=== PATIENT | female | born 1955 | race Caucasian/White ===

== ENCOUNTER 2019-11-12 14:46 | Outpatient (CLI) | payer OTHER, SELFPAY ==
--- NOTE | 2019-11-12 14:51 | US_ITS ---
WS: [id number] INDICATION: Enlarged lymph nodes TECHNIQUE: Ultrasound right axilla FINDINGS: Ultrasound right axilla. No evidence of subcutaneous mass or lesion. No visualized enlarged lymph nodes. US/US soft tissue/extremity 12420 IMPRESSION: Unremarkable right axillary ultrasound
== END 2019-11-12 14:47 | disposition home or self-care (01) ==
LOC: US 14:46
PROVIDERS: PCP Nurse Practitioner Family; Visit Provider Family Medicine
DX: R59.0 Localized enlarged lymph nodes (principal)
CPT/HCPCS: 76882

== ENCOUNTER 2020-01-21 16:17 | Emergency (ER) | payer OTHER, SELFPAY ==
[2020-01-21 16:20] VITALS: BP 177/92; PULSE 69; RESP 16; TEMP 36.3; O2SAT 99; BMI 24.3
--- NOTE | 2020-01-21 16:45 | ECG_ITS ---
[facility] Test Date: 2020-01-21 Pat Name: Marsha Juárez Department: Room: Gender: Female Candy Feeder: : 1955 Requested By: Ruben Shen Order Number: [id number] Demarcus MD: Kike Landrum M.D. Measurements Intervals [place] Rate: 71 P: 64 VA: 152 QRS: 53 QRSD: 106 T: 26 QT: 429 QTc: 467 Interpretive Statements SINUS RHYTHM MODERATE ST DEPRESSION [0.05+ mV ST DEPRESSION] No previous ECG available for comparison Electronically Signed On 01-21-2020 20:22:46 CDT by Kike Landrum M.D. [email or web address] centerCraft[facility].[employer]/store/NU/[id number] f
--- NOTE | 2020-01-21 17:28 | XRR_ITS ---
PROCEDURE INFORMATION: Exam: XR Chest, 1 View Exam date and time: 01/21/2020 5:39 PM Age: 64 years old Clinical indication: Chest pain; Prior surgery; Surgery type: Pain stimulator TECHNIQUE: Imaging protocol: XR of the chest Views: 1 view. COMPARISON: No relevant prior studies available. FINDINGS: Tubes, catheters and devices: Spinal stimulator seen over the thorax. Lungs: Right upper lobe calcified granulomas. Pleural space: Unremarkable. No pleural effusion. No pneumothorax. Heart/Mediastinum: Mild cardiomegaly. Bones/joints: Unremarkable. XR/XR chest 1V portable [id number] IMPRESSION: 1. Negative for infiltrate 2. Right upper lobe calcified granulomas. 3. Spinal stimulator seen over the thorax. 4. Mild cardiomegaly.
--- NOTE | 2020-01-21 18:45 | ECG_ITS ---
[facility] Test Date: 2020-01-21 Pat Name: Marsha Juárez Department: Room: Gender: Female Enterprise Data Architect: : 1955 Requested By: Ruben Shen Order Number: [id number] Demarcus MD: Kike Landrum M.D. Measurements Intervals [place] Rate: 67 P: 68 MO: 142 QRS: 99 QRSD: 99 T: 2 QT: 407 QTc: 430 Interpretive Statements SINUS RHYTHM BORDERLINE RIGHT AXIS DEVIATION [QRS AXIS > 90] MODERATE ST DEPRESSION [0.05+ mV ST DEPRESSION] Compared to ECG 01/21/2020 16:25:00 No significant changes Electronically Signed On 01-21-2020 20:25:21 CDT by Kike Landrum M.D. [email or web address] [email or web address].[employer]/store/OM/[id number]
[2020-01-21 19:35] LABS: Basophils # 0.1 10^3/uL (0.0-0.1); Basophils % 1.2 %; Eosinophils # 0.4 10^3/uL (0.0-0.8); Eosinophils % 4.1 %; Hematocrit 47.6 % (37.0-47.0); Hemoglobin 15.3 g/dL (11.5-15.3); Lymphocytes # 2.2 10^3/uL (0.8-4.8); Lymphocytes % 25.1 %; Mean Corpuscular HGB Conc 32.1 g/dL (30.0-36.0); Mean Corpuscular Hemoglobin 30.5 pg (28.0-34.0); Mean Platelet Volume 10.5 fL (7.4-10.4); Monocytes # 0.5 10^3/uL (0.2-0.9); Monocytes % 5.3 %; Neutrophils % 64.1 %; Nucleated Red Blood Cells % 0 %; Platelet Count 415 10^3/cmm (130-400); Red Blood Count 5.01 10^6/uL (4.1-5.3); Red Cell Distribution Width 13.8 % (12.1-15.1); White Blood Count 8.6 10^3/uL (4.0-10.0)
[2020-01-21 19:46] LABS: Alanine Aminotransferase 18 U/L (0-33); Albumin Level 4.7 g/dL (3.5-5.2); Alkaline Phosphatase 64 IU/L (35-105); Anion Gap 13.1 (5-19); Aspartate Amino Transferase 22 U/L (0-32); Blood Urea Nitrogen 11 mg/dL (8-23); Calcium 9.7 mg/dL (8.5-10.5); Carbon Dioxide 28 mmol/L (22-29); Chloride 101 mmol/L (98-107); Globulin 2.5 g/dL (1.3-4.6); Glomerular Filtration Rate 72.7 mL/min (90-130); Glucose 98 mg/dL (65-115); Osmolality Calculated 282 mOsm/kg (285-295); Potassium 4.1 mmol/L (3.5-5.1); Sodium 138 mmol/L (136-145); Total Bilirubin 0.2 mg/dL (0.15-1.2); Total Protein 7.2 g/dL (6.6-8.7)
[2020-01-21 19:48] LABS: Troponin(5th) Baseline 17 ng/L (0-10)
[2020-01-21 19:54] VITALS: BP 145/84; PULSE 62; TEMP 36.6; O2SAT 99
--- NOTE | 2020-01-21 21:10 | ED_ITS ---
HPI - Chest Pain General: Chief Complaint: Chest Pain Stated Complaint: CP Time Seen by Provider: 01/21/20 20:51 Source: patient Mode of arrival: ambulatory Limitations: no limitations History of Present Illness: HPI narrative: Patient is a 64-year-old female who presents to ED today with complaint of constant substernal chest pain over the past 3 to 4 days. Patient tells me her pain does not radiate. She describes as a heaviness on her chest. She is not having any shortness of breath, cough, difficulty breathing. She does have a chronic history of asthma and states she normally uses her inhaler 1-2 times a week. She is not having to use this more frequently than normal. Patient's chest pain does not seem to be worse with cough, movement, exertion, or position. She denies previous episodes. She has no cardiac history. She is tried a heating pad without relief. She does have a history of heartburn but states this feels different. She does have a history of hiatal hernias that have been repaired but again states this feels different. She has not been running fevers. She does tell me she has been doing a lot of heavy lifting recently and wonders if maybe she could have strained something in her chest. complaint: chest pain Onset (ago): day(s) Timing of current episode: constant Prior episodes: No Pain location: substernal Pain radiation: none Quality: tightness and heaviness Relieving factors: nothing Exacerbating factors: nothing Associated symptoms: Reports dyspnea (chronic, intermittent secondary to asthma); Deny abdominal pain, fever(s), nausea, palpitations, syncope or vomiting Treatment prior to arrival: other (heating pad-no relief ) Review of Systems Const: Denies: fever(s), chills, body aches, fatigue or malaise Eyes: Denies: change in vision, blurry vision, photophobia, floaters or seeing flashes ENMT: Denies: throat pain or odynophagia Card: Reports: chest pain; Denies: palpitations, irregular heart rhythm, edema, swelling of feet/ankles, lightheadedness, syncope, pre-syncope, dyspnea on exertion, orthopnea, leg pain with exertion or acrocyanosis Resp: Reports: dyspnea (chronic, intermittent secondary to asthma); Denies: productive cough, non-productive cough, wheezing, pain on inspiration, change in phlegm color, hemoptysis or chest congestion GI: Denies: abdominal pain, nausea, vomiting or change in stool character : Denies: flank pain Musc: Denies: neck pain or back pain Neuro: Denies: headache(s), numbness in extremities, weakness in extremities, sensory changes or dizziness Physical Exam Const: COMMON NORMALS: no acute distress, average body habitus, patient oriented x3, no limitations, healthy appearing, alert and well nourished HENMT: COMMON NORMALS: atraumatic HEAD & SCALP: atraumatic Neck/C-Spine: COMMON NORMALS: full ROM, no lymphadenopathy and no meningeal signs GENERAL: Yes normal visual inspection Chest: COMMONS NORMALS: normal inspection of the chest Chest images (female): 1. mild TTP Resp: COMMON NORMALS: normal respiratory effort and clear to auscultation bilaterally AUSCULTATION: clear to auscultation bilaterally Cardio: COMMON NORMALS: regular rate and regular rhythm RATE: regular rate RHYTHM: regular rhythm GI: COMMON NORMALS: Normal to inspection, nondistended, normoactive bowel sounds present, Soft to palpation, non-tender, No hepatosplenomegaly present and no masses PALPATION: Yes Soft to palpation and Yes No hepatosplenomegaly present : COMMON NORMALS: Yes no CVA tenderness BLADDER/KIDNEY EXAM: Yes no CVA tenderness Back/Pelvis: COMMON NORMALS: no CVA tenderness Extremity: COMMON NORMALS: capillary refill normal, no clubbing, cyanosis or edema, no calf tenderness and no pedal edema Neuro: COMMON NORMALS: patient oriented x3 SENSORIUM/ORIENTATION: Yes alert MENINGEAL SIGNS: Yes no meningeal signs Skin: COMMON NORMALS: no rashes or lesions noted GENERAL SKIN EXAM: no rashes or lesions noted Course Vital Signs: Vital signs: Vital Signs Temperature 97.9 F 01/21/20 19:54 Pulse Rate 56 L 01/21/20 22:06 Respiratory Rate 16 01/21/20 22:06 Blood Pressure 139/84 01/21/20 22:06 Pulse Oximetry 97 01/21/20 22:06 MDM - Chest Pain MDM Narrative: Medical decision making narrative: Patient is a 64-year-old female who is reporting 3 to 4 days worth of constant 8/10 chest pains. Patient is completely pain-free after GI cocktail. Patient's initial and repeat EKG without ischemic changes. Initial troponin 17 with a negative delta trop. CXR is normal. At this time patient is stable to be discharged. Return to ED precautions given. Lab Data: Labs: Lab Results 01/21/20 01/21/20 01/21/20 Range/Units 18:59 18:59 18:59 WBC 8.6 (4.0-10.0) 10^3/ uL RBC 5.01 (4.1-5.3) 10^6/u L Hgb 15.3 (11.5-15.3) g/dL Hct 47.6 H (37.0-47.0) % MCV 95.0 (81-99) fL MCH 30.5 (28.0-34.0) pg MCHC 32.1 (30.0-36.0) g/dL RDW 13.8 (12.1-15.1) % Plt Count 415 H (130-400) 10^3/c mm MPV 10.5 H (7.4-10.4) fL Neut % (Auto) 64.1 % Lymph % (Auto) 25.1 % [place] % (Auto) 5.3 % Eos % (Auto) 4.1 % Baso % (Auto) 1.2 % Neut # (Auto) 5.50 (1.8-7.7) 10^3/u L Lymph # (Auto) 2.2 (0.8-4.8) 10^3/u L [place] # (Auto) 0.5 (0.2-0.9) 10^3/u L Eos # (Auto) 0.4 (0.0-0.8) 10^3/u L Baso # (Auto) 0.1 (0.0-0.1) 10^3/u L Nucleated RBC % (a uto) 0 % Nucleated RBCs # 0.0 /100WBC Sodium 138 (136-145) mmol/L Potassium 4.1 (3.5-5.1) mmol/L Chloride 101 (98-107) mmol/L Carbon Dioxide 28 (22-29) mmol/L Anion Gap 13.1 (5-19) BUN 11 (8-23) mg/dL Creatinine 0.8 (0.5-0.9) mg/dL GFR Calculation 72.7 L (90-130) mL/min Glucose 98 (65-115) mg/dL Calculated Osmolal ity 282 L (285-295) mOsm/k g Calcium 9.7 (8.5-10.5) mg/dL Total Bilirubin 0.2 (0.15-1.2) mg/dL AST 22 (0-32) U/L ALT 18 (0-33) U/L Alkaline Phosphata se 64 (35-105) IU/L Troponin T Baselin e 17 H (0-10) ng/L Troponin T 120 Min efrain (0-10) ng/L Delta Troponin T (0-10) ABS# Total Protein 7.2 (6.6-8.7) g/dL Albumin 4.7 (3.5-5.2) g/dL Globulin 2.5 (1.3-4.6) g/dL Lipase (13-60) U/L 01/21/20 01/21/20 Range/Units 21:10 21:10 WBC (4.0-10.0) 10^3/ uL RBC (4.1-5.3) 10^6/u L Hgb (11.5-15.3) g/dL Hct (37.0-47.0) % MCV (81-99) fL MCH (28.0-34.0) pg MCHC (30.0-36.0) g/dL RDW (12.1-15.1) % Plt Count (130-400) 10^3/c mm MPV (7.4-10.4) fL Neut % (Auto) % Lymph % (Auto) % [place] % (Auto) % Eos % (Auto) % Baso % (Auto) % Neut # (Auto) (1.8-7.7) 10^3/u L Lymph # (Auto) (0.8-4.8) 10^3/u L [place] # (Auto) (0.2-0.9) 10^3/u L Eos # (Auto) (0.0-0.8) 10^3/u L Baso # (Auto) (0.0-0.1) 10^3/u L Nucleated RBC % (a uto) % Nucleated RBCs # /100WBC Sodium (136-145) mmol/L Potassium (3.5-5.1) mmol/L Chloride (98-107) mmol/L Carbon Dioxide (22-29) mmol/L Anion Gap (5-19) BUN (8-23) mg/dL Creatinine (0.5-0.9) mg/dL GFR Calculation (90-130) mL/min Glucose (65-115) mg/dL Calculated Osmolal ity (285-295) mOsm/k g Calcium (8.5-10.5) mg/dL Total Bilirubin (0.15-1.2) mg/dL AST (0-32) U/L ALT (0-33) U/L Alkaline Phosphata se (35-105) IU/L Troponin T Baselin e (0-10) ng/L Troponin T 120 Min efrain 14.14 H (0-10) ng/L Delta Troponin T -2.86 L (0-10) ABS# Total Protein (6.6-8.7) g/dL Albumin (3.5-5.2) g/dL Globulin (1.3-4.6) g/dL Lipase 27 (13-60) U/L Imaging Data^: CXR: Radiologist's impression: [address] [place] [address] XRay Report Signed Patient: Marsha Juárez Unit #: [id number] : 1955 Age/Sex: 64 / F ADM Date: 01/21/20 Loc: ER Room/Bed: Attending Dr: Ordering Provider/Ordering MD: Florina Agee Date of Service: 01/21/20 Procedure(s): XR chest 1V portable [id number] Accession Number(s): [id number] Report Number: [id number] PROCEDURE INFORMATION: Exam: XR Chest, 1 View Exam date and time: 01/21/2020 5:39 PM Age: 64 years old Clinical indication: Chest pain; Prior surgery; Surgery type: Pain stimulator TECHNIQUE: Imaging protocol: XR of the chest Views: 1 view. COMPARISON: No relevant prior studies available. FINDINGS: Tubes, catheters and devices: Spinal stimulator seen over the thorax. Lungs: Right upper lobe calcified granulomas. Pleural space: Unremarkable. No pleural effusion. No pneumothorax. Heart/Mediastinum: Mild cardiomegaly. Bones/joints: Unremarkable. XR/XR chest 1V portable [id number] IMPRESSION: 1. Negative for infiltrate 2. Right upper lobe calcified granulomas. 3. Spinal stimulator seen over the thorax. 4. Mild cardiomegaly. Dictated By: Jhon Yao MD Signed By: Jhon Yao MD Signed Date/Time: 01/21/202128 DD/ 27 EKG Data^: EKG 1: EKG interpretation date: 01/21/20 EKG interpretation time: 16:25 Interpretation: Sinus rhythm Rate [address] elevation or depression changes noted Reviewed by Dr. Mace EKG 2: EKG interpretation date: 01/21/20 EKG interpretation time: 18:53 Interpretation: Sinus rhythm Rate [address] elevation or depression changes noted No acute changes from EKG performed on same visit Discharge Plan Discharge Patient Disposition: Home Clinical Impression: Acute epigastric pain Condition: Stable Prescriptions: New Prilosec OTC 20 mg tablet,delayed release (DR/EC) 20 mg PO DAILY 28 Days Qty: 28 RF: 0 Acid Railroad Car Cleaning Supervisor (famotidine) 20 mg tablet 20 mg PO Q12H 14 Days Qty: 28 RF: 0 No Action amlodipine 2.5 mg tablet 2.5 mg PO DAILY RF: 0 Synthroid 75 mcg tablet 75 mcg PO DAILY RF: 0 estradiol 1 mg tablet 1 mg PO DAILY RF: 0 Ventolin HFA 90 mcg/actuation HFA aerosol inhaler See Rx Instructions .ROUTE .COMPLEX RF: 0 Linzess 290 mcg capsule 290 mcg PO DAILY RF: 0 Discharge Orders: Discharge Order (Routine); Ordered 01/21/20 Ordered By: Florina Agee Referrals: Saadia Damon MD [Primary Care Provider] - Patient Instructions: Famotidine (By mouth), Heartburn, Gastroesophageal Reflux Disease (ED), Abdominal Pain (ED) Activity Restrictions/Additional Instructions: Please follow-up with primary care in approximately one week for reevaluation. You may return to the emergency department for worsening chest pain, shortness of breath, difficulty breathing, vomiting blood or any other concerns you may have. Discharge Date/Time: 01/21/20 22:11 Coding Level of Care Code ED Slicing Machine Operator/Tender for Chg Fwd Exam Comprehensive
[2020-01-21] MEDS: lidocaine 2% viscous 15 ML, aluminum-mag hydrox-simethicon 30 ML, sucralfate oral liq 1 GM PO (21:31)
[2020-01-21 21:35] LABS: Troponin 5 2HR 14.14 ng/L (0-10)
[2020-01-21 21:37] LABS: Troponin 5 2HR Delta -2.86 ABS# (0-10)
[2020-01-21 21:46] LABS: Lipase 27 U/L (13-60)
[2020-01-21 22:06] VITALS: BP 139/84; PULSE 56; RESP 16; O2SAT 97
== END 2020-01-21 22:11 | disposition home or self-care (01) ==
PROVIDERS: Family Medicine; Emergency Provider Physician Assistant; PCP Family Medicine
DX: R10.13 Epigastric pain (principal)
CPT/HCPCS: 12345; 36415; 71045; 80053; 83690; 84484; 85025; 93005; 99281; 99284

== ENCOUNTER → 2020-07-10 12:20 | Outpatient (BNVA) | payer OTHER, SELFPAY | PROVIDERS: PCP Family Medicine; Visit Provider Nurse Practitioner | DX: R35.0 Frequency of micturition (principal); N39.0 Urinary tract infection, site not specified | CPT/HCPCS: 81000; 87077; 87086; 87184 ==

== ENCOUNTER → 2020-08-05 10:09 | Outpatient (BNVA) | payer OTHER, SELFPAY | PROVIDERS: PCP Family Medicine; Visit Provider Nurse Practitioner | DX: N39.0 Urinary tract infection, site not specified (principal) | CPT/HCPCS: 81000 ==

== ENCOUNTER → 2020-09-05 08:30 | Outpatient (BNVA) | payer OTHER, SELFPAY | PROVIDERS: PCP Family Medicine; Visit Provider Nurse Practitioner Family | DX: R33.9 Retention of urine, unspecified (principal); B37.3 Candidiasis of vulva and vagina; N39.0 Urinary tract infection, site not specified | CPT/HCPCS: 81003; 87086 ==

== ENCOUNTER → 2020-10-17 09:56 | Outpatient (BNVA) | payer OTHER, SELFPAY | PROVIDERS: PCP Family Medicine; Visit Provider Urology | DX: N39.0 Urinary tract infection, site not specified (principal) | CPT/HCPCS: 81003 ==

== ENCOUNTER → 2020-11-29 10:44 | Outpatient (BNVA) | payer OTHER, SELFPAY | PROVIDERS: PCP Family Medicine; Visit Provider Urology | DX: N39.0 Urinary tract infection, site not specified (principal); B37.3 Candidiasis of vulva and vagina | CPT/HCPCS: 81003 ==

== ENCOUNTER → 2021-04-05 09:56 | Outpatient (BNVA) | payer OTHER, SELFPAY | PROVIDERS: PCP Family Medicine; Visit Provider Urology | DX: N39.0 Urinary tract infection, site not specified (principal) | CPT/HCPCS: 81003 ==

== ENCOUNTER → 2021-12-27 09:43 | Outpatient (BNVA) | payer OTHER, SELFPAY | PROVIDERS: PCP Family Medicine; Visit Provider Nurse Practitioner Family | DX: R33.9 Retention of urine, unspecified (principal) | CPT/HCPCS: 81003 ==

== ENCOUNTER → 2022-02-22 08:22 | Outpatient (BNVA) | payer MEDICARE, OTHER, SELFPAY | PROVIDERS: PCP Family Medicine; Visit Provider Nurse Practitioner Family | DX: N39.0 Urinary tract infection, site not specified (principal) | CPT/HCPCS: 81003; 87086 ==

== ENCOUNTER → 2022-03-16 08:25 | Outpatient (BNVA) | payer MEDICARE, OTHER, SELFPAY | PROVIDERS: PCP Family Medicine; Visit Provider Urology | DX: N39.0 Urinary tract infection, site not specified (principal) | CPT/HCPCS: 81003; 87086 ==

== ENCOUNTER → 2022-05-31 14:51 | Outpatient (BNVA) | payer MEDICARE, OTHER, SELFPAY | PROVIDERS: PCP Family Medicine; Visit Provider Urology | DX: N39.0 Urinary tract infection, site not specified (principal) | CPT/HCPCS: 81003 ==

== ENCOUNTER 2022-06-08 12:15 | Outpatient (CLI) | payer MEDICARE, OTHER, SELFPAY ==
--- NOTE | 2022-06-08 12:39 | XR_ITS ---
WS: [id number] LEFT SECOND FINGER. TECHNIQUE: PA, oblique and lateral. HISTORY: PAIN IN LEFT FINGER/L INDEX FINGER PAIN COMPARISON: None available. No fracture, dislocation or joint abnormality. Very mild diffuse soft tissue swelling. No foreign body. No fracture. XR/XR finger LT min 2V [id number] IMPRESSION: Mild soft tissue edema. No fracture.
== END 2022-06-08 12:16 | disposition home or self-care (01) ==
PROVIDERS: PCP Family Medicine; Visit Provider Family Medicine
DX: M79.645 Pain in left finger(s) (principal); R60.0 Localized edema
CPT/HCPCS: 73140

== ENCOUNTER 2022-08-14 06:00 | Outpatient (RCR) | payer MEDICARE, OTHER, SELFPAY | END 2022-09-09 23:59 | disposition home or self-care (01) | LOC: SPT 06:00 | PROVIDERS: Visit Provider Neurological Surgery | DX: M40.202 Unspecified kyphosis, cervical region (principal); M48.02 Spinal stenosis, cervical region; M50.121 Cervical disc disorder at C4-C5 level with radiculopathy | CPT/HCPCS: 97110; 97161 ==

== ENCOUNTER 2022-09-10 06:00 | Outpatient (RCR) | payer MEDICARE, OTHER, SELFPAY | END 2022-09-12 23:59 | disposition home or self-care (01) | LOC: SPT 06:00 | PROVIDERS: Visit Provider Neurological Surgery | DX: M40.202 Unspecified kyphosis, cervical region (principal); M48.02 Spinal stenosis, cervical region; M50.121 Cervical disc disorder at C4-C5 level with radiculopathy | CPT/HCPCS: 97110 ==

== ENCOUNTER → 2022-10-24 07:56 | Outpatient (BNVA) | payer MEDICARE, OTHER, SELFPAY | PROVIDERS: PCP Family Medicine; Visit Provider Urology | DX: N39.0 Urinary tract infection, site not specified (principal) | CPT/HCPCS: 81003; 99213 ==

== ENCOUNTER → 2022-11-19 10:49 | Outpatient (BNVA) | payer MEDICARE, OTHER, SELFPAY | PROVIDERS: PCP Family Medicine; Visit Provider Student in an Organized Health Care Education/Training Program | DX: L03.012 Cellulitis of left finger (principal) | CPT/HCPCS: 99203 ==

== ENCOUNTER 2023-07-11 21:08 | Emergency (ER) | payer MEDICARE, OTHER, SELFPAY ==
[2023-07-11 21:13] VITALS: BP 182/99; PULSE 69; RESP 18; TEMP 36.6; O2SAT 98
--- NOTE | 2023-07-11 22:45 | ED_ITS ---
HPI - Recheck/Abnormal Lab/Rx General: Chief Complaint: Recheck/Abnormal Lab/Rx Stated Complaint: SULAIMAN High Time Seen by Provider: 07/11/23 22:33 History of Present Illness: Patient presents to the ER with complaints of headache and high blood pressure. Patient stated she normally gets headache when she has high blood pressure. Patient developed a headache today and she checked her blood pressure and is approximately 180/100 patient went ahead and took her blood pressure medicine but the headache did not go away so she came to the ER for further evaluation. Patient denies any other symptoms at this time such as neurosymptoms, chest pain dyspnea etc. Review of Systems General: Reports: 10 or more systems reviewed and unremarkable except in HPI and below PFSH ED PFSH: Medical History Recurrent UTI Family History Mother , at 69 Heart disease Father , at age 72 Heart disease Social History Smoking and tobacco/nicotine status: former use of tobacco/nicotine Alcohol intake: never Substance/Drug Use: never Marital status: Current occupational status: retired Physical Exam Const: COMMON NORMALS: no acute distress, average body habitus, patient oriented x3, no limitations, healthy appearing, alert and well nourished HENMT: COMMON NORMALS: normocephalic, atraumatic, hearing grossly normal bilaterally, external ears normal, EAC's normal, Normal external nose present, moist oral mucous membranes and oropharynx normal HEAD & SCALP: normocephalic and atraumatic NOSE: Normal external nose present EXTERNAL EAR: Yes external ears normal EXTERNAL AUDITORY CANAL: EAC's normal Neck/C-Spine: COMMON NORMALS: no JVD Chest: COMMONS NORMALS: normal inspection of the chest and normal palpation of entire chest wall Resp: COMMON NORMALS: normal respiratory effort, No retractions, No use of accessory muscles and clear to auscultation bilaterally AUSCULTATION: clear to auscultation bilaterally Cardio: COMMON NORMALS: no JVD, regular rate, regular rhythm, S1 normal heart sound present, S2 normal heart sound present, No gallops present (Cardio), No clicks present (Cardio), No murmurs present (Cardio) and No rub (Cardio) RATE: regular rate RHYTHM: regular rhythm HEART SOUNDS: S1 normal heart sound present and S2 normal heart sound present GI: COMMON NORMALS: Normal to inspection, nondistended, normoactive bowel sounds present, Soft to palpation, non-tender, No hepatosplenomegaly present and no masses PALPATION: Yes Soft to palpation and Yes No hepatosplenomegaly present Neuro: COMMON NORMALS: patient oriented x3 SENSORIUM/ORIENTATION: Yes alert Course Vital Signs: Vital signs: Vital Signs Temperature 97.9 F 07/11/23 21:13 Pulse Rate 68 07/12/23 01:26 Respiratory Rate 16 07/12/23 01:26 Blood Pressure 129/80 07/12/23 01:26 Pulse Oximetry 68 L 07/12/23 01:26 Oxygen Delivery Me thod Room Air 07/11/23 21:13 MDM - Recheck/Abnormal Lab/Rx Medical Decision Making Patient physical exam and her blood pressure was 182/99, patient was given clonidine 0.1 mg and her blood pressure come down to 113/54. Patient's headache went away. Patient was resting soundly in bed. Patient be discharged home to follow-up with PCP Differential Diagnosis Unlikely encounter for medication refill, encounter for wound recheck, encounter for recheck of burn, encounter for removal of sutures or warfarin-induced coagulopathy Medical Records I reviewed the patient's medical records. Lab Data I reviewed the patient's lab results. No radiology studies performed this visit Discharge Plan Discharge Patient Disposition: Home Clinical Impression: Hypertension Qualifiers: Hypertension type: unspecified Qualified Code(s): I10 - Essential (primary) hypertension Headache Qualifiers: Headache type: unspecified Headache chronicity pattern: acute headache Intractability: not intractable Qualified Code(s): R51.9 - Headache, unspecified Condition: Stable Prescriptions: No Action Adult 50 Plus Probiotic 4 billion cell capsule 4,000 mmu cells PO DAILY Rx Instructions: administer with a meal levothyroxine 88 mcg capsule 88 mcg PO DAILY amlodipine 5 mg tablet 5 mg PO DAILY potassium 99 mg tablet PO cholecalciferol (vitamin D3) 10 mcg (400 unit) capsule 10 mcg PO DAILY vitamin E (dl, acetate) 45 mg (100 unit) capsule 45 mg PO DAILY ezetimibe 10 mg tablet 10 mg PO DAILY cephalexin 500 mg capsule 500 mg PO BID PRN nitrofurantoin monohyd/m-cryst 100 mg capsule See Rx Instructions .ROUTE .COMPLEX Qty: 60 12RF Dose Instruction: TAKE 1 CAPSULE BY MOUTH TWICE DAILY WITH FOOD Rx Instructions: TAKE 1 CAPSULE BY MOUTH TWICE DAILY WITH FOOD estradiol 1 mg tablet 1 mg PO DAILY Ventolin HFA 90 mcg/actuation HFA aerosol inhaler See Rx Instructions .ROUTE .COMPLEX Rx Instructions: inhaled 2 PUFFS PO Q6H PRN FOR WHEEZING. Linzess 290 mcg capsule 290 mcg PO DAILY Discharge Orders: Discharge ED (Routine); Ordered 07/12/23 Ordered By: Juan Joseph Referrals: Saadia Damon MD [Primary Care Provider] - 1 week Patient Instructions: Headache, Hypertension (ED) Activity Restrictions/Additional Instructions: Keep a regular check on your blood pressure. Please take all your medicine as prescribed. Please follow-up with your family practice physician within next 7 days as you may benefit from blood pressure medicine changes. Headache returns and you cannot get it to control please feel free to return to the ER. Coding Level of Care Code ED Analog Design Engineer for Linda Dickinson
[2023-07-11 22:51] VITALS: BP 158/90
[2023-07-11 22:57] VITALS: BP 158/90
[2023-07-11] MEDS: cloNIDine 0.1 mg Tablet 0.100000000000000006 MG PO (22:57)
[2023-07-11 23:04] VITALS: BP 153/94; PULSE 60; RESP 18; O2SAT 95
[2023-07-12 00:09] VITALS: BP 140/82; PULSE 90; RESP 16; O2SAT 100
[2023-07-12 01:06] VITALS: BP 113/54; PULSE 55; RESP 18; O2SAT 94
[2023-07-12 01:26] VITALS: BP 129/80; PULSE 68; RESP 16; O2SAT 68
== END 2023-07-12 01:27 | disposition home or self-care (01) ==
PROVIDERS: Emergency Provider Emergency Medicine; PCP Family Medicine
DX: I10 Essential (primary) hypertension (principal); R51.9 Headache, unspecified; Z87.891 Personal history of nicotine dependence
CPT/HCPCS: 99283

== ENCOUNTER → 2023-07-16 09:26 | Outpatient (BNVA) | payer MEDICARE, OTHER, SELFPAY | PROVIDERS: PCP Family Medicine; Visit Provider Student in an Organized Health Care Education/Training Program | DX: M79.645 Pain in left finger(s) (principal) | CPT/HCPCS: 73140; 99213 ==

== ENCOUNTER 2023-08-15 07:50 | Outpatient (CLI) | payer MEDICARE, OTHER, SELFPAY ==
--- NOTE | 2023-08-15 07:55 | MR_ITS ---
WS: [id number] MRA ANGIOGRAPHY [place] OF [place] HISTORY: FH ANEURYSM BRAIN BLEED,LABILE HTB COMPARISON: None available. TECHNIQUE: 3-D MR angiography is performed of the [place] of [place]. All images are reviewed including source images. Distal vertebral and basilar arteries are intact with no significant stenosis or plaque. RIGHT verteb ral artery is slightly dominant. Posterior cerebral arteries are normal course and caliber. Persisten t circulation RIGHT CHILDREN'S PROGRAM COORDINATOR. Small caliber, hypoplastic LEFT posterior communicating artery. Intracranial portion of the internal carotid arteries are normal course and caliber. No significant a therosclerosis, stenosis or aneurysm identified. Middle and anterior cerebral arteries are both paten t with no significant disease. Anterior communicating artery is also normal. IMPRESSION: 1. No aneurysm within the [place]. 2. Mildly dominant RIGHT vertebral artery. 3. 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
--- NOTE | 2023-08-15 07:55 | USCV_ITS ---
Franck Marsha Age: 68 Gender: F : 1955 Exam Date: 08/15/2023 08:37 Ordering Phys: Saadia Damon MD Technologist: CT Exam Location: [facility] [place] Indication: htn Aortic Velocity @ SMA (cm/s) RIGHT KIDNEY LEFT KIDNEY Velocity (cm/s) Velocity (cm/s) Sys/Foote Sys/Foote Resistive Index Resistive Index 102.9 / 35.3 0.66 Proximal Renal Artery 85.7 / 34.1 0.60 102.5 / 35.8 0.65 Mid Renal Artery 93.7 / 29.3 0.69 / Distal Renal Artery 66.9 / 19.7 0.71 42.0 / 15.6 0.63 Hilar 35.3 / 10.8 0.70 38.3 / 14.8 0.61 Upper Pole 24.6 / 9.5 0.61 34.9 / 13.2 0.56 Mid Pole 25.8 / 9.5 0.63 23.9 / 9.5 0.60 Lower Pole 27.3 / 10.8 0.60 1.40 Renal Aortic Ratio 1.30 9.2 Kidney Length (cm) 10.7 FINDINGS rt dst renal art not seen due to bowel gas no THOM identified CONCLUSIONS No sonographic evidence of hemodynamically significant renal artery stenosis bilaterally. RIGHT distal renal artery not visualized due to bowel gas Duglas Weems MD (Electronically Signed) Final Date: 15 August 2023 12:45 S
== END 2023-08-15 07:51 | disposition home or self-care (01) ==
LOC: RAD 07:50
PROVIDERS: PCP Family Medicine; Visit Provider Family Medicine
DX: I10 Essential (primary) hypertension (principal); R51.9 Headache, unspecified; Z82.49 Family history of ischemic heart disease and other diseases of the circulatory system
CPT/HCPCS: 70544; 93975

== ENCOUNTER 2023-09-23 10:41 | Emergency (ER) | payer MEDICARE, OTHER, SELFPAY ==
[2023-09-23 11:24] VITALS: BP 156/86; PULSE 65; TEMP 36.7; O2SAT 98; BMI 20.7
[2023-09-23 11:42] LABS: Basophils # 0.1 10^3/uL (0.0-0.1); Basophils % 1.2 %; Eosinophils # 0.3 10^3/uL (0.0-0.8); Eosinophils % 2.7 %; Hematocrit 49.7 % (36-47); Lymphocytes # 1.9 10^3/uL (0.8-4.8); Lymphocytes % 19.4 %; Mean Corpuscular Hemoglobin 28.8 pg (27-33); Mean Corpuscular Volume 93.1 fl (85-98); Mean Platelet Volume 9.9 fL (7.4-10.4); Monocytes # 0.4 10^3/uL (0.2-0.9); Monocytes % 4.3 %; Neutrophils # 6.95 10^3/uL (1.8-7.7); Nucleated Red Blood Cells % 0 %; Platelet Count 603 10^3/cmm (157-399); Red Blood Count 5.34 10^6/uL (3.85-5.65); White Blood Count 9.67 10^3/uL (3.29-11.43)
[2023-09-23 11:58] LABS: Alanine Aminotransferase 14 U/L (0-33); Albumin Level 4.1 g/dL (3.5-5.2); Alkaline Phosphatase 135 U/L (35-105); Anion Gap 13.1 (5-19); Aspartate Amino Transferase 18 U/L (0-32); Blood Urea Nitrogen 4 mg/dL (8-23); Calcium 9.5 mg/dL (8.5-10.5); Carbon Dioxide 27 mmol/L (22-29); Chloride 105 mmol/L (98-107); Globulin 3.5 g/dL (1.3-4.6); Glomerular Filtration Rate 83.7 mL/min (90-130); Glucose 94 mg/dL (65-115); Lipase 27 U/L (13-60); Osmolality Calculated 289 mOsm/kg (285-295); Potassium 4.1 mmol/L (3.5-5.1); Sodium 141 mmol/L (136-145); Total Bilirubin 0.3 mg/dL (0.15-1.2); Total Protein 7.6 g/dL (6.6-8.7)
--- NOTE | 2023-09-23 11:58 | ED_ITS ---
HPI - Abdominal Pain 2 General: Chief Complaint: Abdominal Pain Stated Complaint: abd pain, sent by Dr. Damon Time Seen by Provider: 09/23/23 11:51 Source: patient Mode of arrival: ambulatory History of Present Illness: 70-year-old female presents emergency ro om complaining of several days of abdominal pain. Localizes pain to the right lower quadrant she has had pain there for several days she was recently started on antibiotic for otitis media. No fever sweats or chills. She had seen her primary care today they are concerned about appendicitis she does have a history of irritable bowel. No recent hematochezia melena hematemesis coffee-ground emesis or diarrhea. She does mention she had back surgery a month ago. MD elicited complaint: abdominal pain Onset (ago): day(s) Location: RLQ Severity: mild Quality: cramping Exacerbating factors: nothing Relieving factors: nothing Associated Symptoms: Reports GI cramping; Denies anorexia, belching, bloating, change in bowel habits, change in stool character, chills, coffee ground emesis, constipation, diarrhea, dyspepsia, dysuria, excessive flatus, fever(s), heartburn, hematochezia, hematuria, hematemesis, fecal incontinence, loose stools, melena, nausea, poor appetite, syncope and vomiting Review of Systems 2 Const: Denies: fever(s) or chills Card: Denies: chest pain or syncope Resp: Denies: dyspnea GI: Reports: abdominal pain and GI cramping; Denies: nausea, vomiting, hematemesis, coffee ground emesis, heartburn, diarrhea, constipation, bloating, belching, excessive flatus, fecal incontinence, change in bowel habits, change in stool character, hematochezia or melena : Denies: dysuria, urinary frequency, urinary urgency or hematuria Musc: Denies: neck pain or back pain Skin/Breast: Denies: rash PFSH ED 2 PFSH: Medical History Recurrent UTI Family History Mother , at 69 Heart disease Father , at age 72 Heart disease Social History Smoking and tobacco/nicotine status: former use of tobacco/nicotine Alcohol intake: never Substance/Drug Use: never Marital status: Current occupational status: retired Physical Exam 2 Const: GENERAL APPEARANCE: cooperative and comfortable O RIENTATION/CONSCIOUSNESS: Yes awake, Yes oriented to person, Yes oriented to place and Yes oriented to time HENMT: COMMON NORMALS: normocephalic, atraumatic and hearing grossly normal bilaterally HEAD & SCALP: normocephalic and atraumatic Resp: COMMON NORMALS: normal respiratory effort, No retractions, No use of accessory muscles and clear to auscultation bilaterally AUSCULTATION: clear to auscultation bilaterally Cardio: COMMON NORMALS: regular rate, regular rhythm and No murmurs present (Cardio) RATE: regular rate RHYTHM: regular rhythm GI: COMMON NORMALS: No hepatosplenomegaly present AUSCULTATION: Yes normoactive bowel sounds PALPATION: Yes Tenderness to palpation present (GI) Details: RLQ, No Guarding due to palpation present (GI) and Yes No hepatosplenomegaly present Extremity: COMMON NORMALS: normal to inspection, capillary refill normal, no clubbing, cyanosis or edema, no calf tenderness and no pedal edema Neuro: SENSORIUM/ORIENTATION: Yes oriented to person, Yes oriented to place and Yes oriented to time Skin: COMMON NORMALS: no rashes or lesions noted GENERAL SKIN EXAM: no rashes or lesions noted Course 2 Vital Signs: Vital signs: Vital Signs Temperature 98.1 F 09/23/23 11:24 Pulse Rate 62 09/23/23 12:34 Respiratory Rate 16 09/23/23 12:34 Blood Pressure 182/77 09/23/23 12:34 Pulse Oximetry 98 09/23/23 12:34 Oxygen Delivery Me thod Room Air 09/23/23 12:34 MDM - Abdominal Pain Medical Decision Making Labs and imaging reviewed. No acute findings in the abdomen CT or on her lab work. There is constipation in the right hemicolon. Will treat with lactulose every 2 hours till desired results achieved. Follow-up with primary care Lab Data 09/23/23 11:36 09/23/23 11:36 Labs/Radiology: Radiology Impressions Abdomen/Pelvis CT 09/23/23 12:10 IMPRESSION: Spine hardware degrades some images 1. No hydronephrosis in either kidney. 2. Low-lying cecum with moderate constipation. No evidence of high-grade obstruction. 3. Recent postoperative changes pedicle screw fixation L2-3 with interbody fusion graft and wide decompressive laminectomies. Normal postoperative changes in the posterior elements. 4. Urine distended bladder. 5. No other acute findings. Laboratory Results WBC 9.67 10^3/uL (3.29-11.43) 09/23/23 11:36 RBC 5.34 10^6/uL (3.85-5.65) 09/23/23 11:36 Hgb 15.40 g/dL (11.27-16.99) 09/23/23 11:36 Hct 49.7 % (36-47) H 09/23/23 11:36 MCV 93.1 fl (85-98) 09/23/23 11:36 MCH 28.8 pg (27-33) 09/23/23 11:36 MCHC 31.0 g/dL (30-55) 09/23/23 11:36 RDW 15.0 % (12.1-15.1) 09/23/23 11:36 Plt Count 603 10^3/cmm (157-399) H 09/23/23 11:36 MPV 9.9 fL (7.4-10.4) 09/23/23 11:36 Neut % (Auto) 72.0 % 09/23/23 11:36 Lymph % (Auto) 19.4 % 09/23/23 11:36 Harris % (Auto) 4.3 % 09/23/23 11:36 Eos % (Auto) 2.7 % 09/23/23 11:36 Baso % (Auto) 1.2 % 09/23/23 11:36 Neut # (Auto) 6.95 10^3/uL (1.8-7.7) 09/23/23 11:36 Lymph # (Auto) 1.9 10^3/uL (0.8-4.8) 09/23/23 11:36 Harris # (Auto) 0.4 10^3/uL (0.2-0.9) 09/23/23 11:36 Eos # (Auto) 0.3 10^3/uL (0.0-0.8) 09/23/23 11:36 Baso # (Auto) 0.1 10^3/uL (0.0-0.1) 09/23/23 11:36 Nucleated RBC % (auto) 0 % 09/23/23 11:36 Nucleated RBCs # 0.0 /100WBC 09/23/23 11:36 Sodium 141 mmol/L (136-145) 09/23/23 11:36 Potassium 4.1 mmol/L (3.5-5.1) 09/23/23 11:36 Chloride 105 mmol/L (98-107) 09/23/23 11:36 Carbon Dioxide 27 mmol/L (22-29) 09/23/23 11:36 Anion Gap 13.1 (5-19) 09/23/23 11:36 BUN 4 mg/dL (8-23) L 09/23/23 11:36 Creatinine 0.7 mg/dL (0.5-0.9) 09/23/23 11:36 GFR Calculation 83.7 mL/min (90-130) L 09/23/23 11:36 Glucose 94 mg/dL (65-115) 09/23/23 11:36 Calculated Osmolality 289 mOsm/kg (285-295) 09/23/23 11:36 Calcium 9.5 mg/dL (8.5-10.5) 09/23/23 11:36 Total Bilirubin 0.3 mg/dL (0.15-1.2) 09/23/23 11:36 AST 18 U/L (0-32) 09/23/23 11:36 ALT 14 U/L (0-33) 09/23/23 11:36 Alkaline Phosphatase 135 U/L (35-105) H 09/23/23 11:36 Total Protein 7.6 g/dL (6.6-8.7) 09/23/23 11:36 Albumin 4.1 g/dL (3.5-5.2) 09/23/23 11:36 Globulin 3.5 g/dL (1.3-4.6) 09/23/23 11:36 Lipase 27 U/L (13-60) 09/23/23 11:36 Urine Color Yellow (Yellow) 09/23/23 10:21 Urine Appearance Clear (CLEAR) 09/23/23 10:21 Urine pH 7 (5-7) 09/23/23 10:21 Ur Specific [place] 1.000 (1.005-1.030) L 09/23/23 10:21 Urine Protein Neg (Negative) 09/23/23 10:21 Urine Glucose (UA) Norm (Normal) 09/23/23 10:21 Urine Ketones Negative (Negative) 09/23/23 10:21 Urine Blood Neg (Negative) 09/23/23 10:21 Urine Nitrate Negative (Negative) 09/23/23 10:21 Urine Bilirubin Neg (Negative) 09/23/23 10:21 Urine Urobilinogen Norm mg/dL (Negative) 09/23/23 10:21 Ur Leukocyte Esterase Negative (Negative) 09/23/23 10:21 All radiology interpretation(s) finalized by discharge Discharge Plan Discharge Patient Disposition: Home Clinical Impression: Constipation Condition: Stable Prescriptions: New lactulose 20 gram/30 mL solution 20 g PO Q2H 1 Days Qty: 360 0RF Rx Instructions: until desired laxative effect No Action Adult 50 Plus Probiotic 4 billion cell capsule 4,000 mmu cells PO DAILY Rx Instructions: administer with a meal levothyroxine 88 mcg capsule 88 mcg PO DAILY amlodipine 5 mg tablet 5 mg PO DAILY potassium 99 mg tablet PO cholecalciferol (vitamin D3) 10 mcg (400 unit) capsule 10 mcg PO DAILY vitamin E (dl, acetate) 45 mg (100 unit) capsule 45 mg PO DAILY ezetimibe 10 mg tablet 10 mg PO DAILY cephalexin 500 mg capsule 500 mg PO BID PRN nitrofurantoin monohyd/m-cryst 100 mg capsule See Rx Instructions .ROUTE .COMPLEX Qty: 60 12RF Dose Instruction: TAKE 1 CAPSULE BY MOUTH TWICE DAILY WITH FOOD Rx Instructions: TAKE 1 CAPSULE BY MOUTH TWICE DAILY WITH FOOD estradiol 1 mg tablet 1 mg PO DAILY Ventolin HFA 90 mcg/actuation HFA aerosol inhaler See Rx Instructions .ROUTE .COMPLEX Rx Instructions: inhaled 2 PUFFS PO Q6H PRN FOR WHEEZING. Linzess 290 mcg capsule 290 mcg PO DAILY Discharge Orders: Discharge ED (Routine); Ordered 09/23/23 Ordered By: Ruben Knott Referrals: Saadia Damon MD [Primary Care Provider] - Discharge Diet: Usual diet Discharge Activity: Resume usual activity Patient Instructions: Opioid Safety, Pain Management Activity Restrictions/Additional Instructions: Thank you for choosing [facility] for your healthcare needs today. Please realize this is an emergency room and that we are providing you with a medical screening exam and this may not be complete and all inclusive of all the testing and or work up that you may need to determine your ailment or severity of your illness. It is very important that you follow up as instructed or that you return to the Emergency Department should you have concerns or if your condition changes or worsens in any way. You are seen today for abdominal pain your white count was normal urine was normal CT showed constipation on the right side of the colon. Recommend use lactulose 1 dose every 2 hours until desired results achieved. Coding Level of Care Code ED Supervisor [place] for Linda Dickinson
--- NOTE | 2023-09-23 12:10 | CT_ITS ---
WS: [id number] CT ABDOMEN PELVIS TECHNIQUE: Noncontrast CT of the abdomen and pelvis with coronal and sagittal reformatted images. CLINICAL INFORMATION: Abdominal pain COMPARISON: None. DLP: 350.[address] scans at [facility] use at least one of these dose optimization techniques: automated e xposure control; mA and/or kV adjustment per patient size (includes targeted exams where dose is matc hed to clinical indication); or iterative reconstruction. FINDINGS: Adrenal glands are normal. No hydronephrosis in either kidney. Urine distended bladder. Previous exte nsive postoperative changes lumbar spine fusion with decompressive laminectomies. Wide decompressive laminectomies with postoperative seroma in the laminectomy defects. Hardware degrades some images. Lung bases are well aerated. Noncontrast liver is normal. Splenic granulomas. Normal GE junction. Non contrast gallbladder appears normal. Normal caliber abdominal aorta. Dense constipation in the RIGHT cecum. Low-lying RIGHT cecum. No evidence of high-grade obstruction. Noncontrast liver and spleen jo ear normal. Mild amount of megaly. Splenic granulomas. A few sigmoid diverticuli. Prior hysterectomy. Normal appendix. CT/CT abdomen pelvis wo con [id number] IMPRESSION: Spine hardware degrades some images 1. No hydronephrosis in either kidney. 2. Low-lying cecum with moderate constipation. No evidence of high-grade obstr uction. 3. Recent postoperative changes pedicle screw fixation L2-3 with interbody fus ion graft and wide decompressive laminectomies. Normal postoperative changes in the posterior elements. 4. Urine distended bladder. 5. No other acute findings.
[2023-09-23 12:25] LABS: Add Urine Microscopic? NO; Charge for UA Resulting for Rev
[2023-09-23 12:32] LABS: Bilirubin Urine Neg (Negative); Blood Urine Neg (Negative); Glucose Urine UA Norm (Normal); Ketones Urine Negative (Negative); Nitrate Urine Negative (Negative); Protein Urine Neg (Negative); Urine Appearance Clear (CLEAR); Urine Color Yellow (Yellow); pH Urine 7 (5-7)
[2023-09-23 12:33] LABS: Leukocyte Esterase Urine Negative (Negative); Urobilinogen Urine Norm (Negative)
[2023-09-23 12:34] VITALS: BP 182/77; PULSE 62; RESP 16; O2SAT 98
[2023-09-23 14:14] VITALS: BP 123/80; PULSE 71; RESP 16; O2SAT 96
== END 2023-09-23 14:15 | disposition home or self-care (01) ==
PROVIDERS: Physician Assistant; Emergency Provider Family Medicine; PCP Family Medicine
DX: K59.00 Constipation, unspecified (principal); Z87.891 Personal history of nicotine dependence
CPT/HCPCS: 36415; 74176; 80053; 81003; 83690; 85025; 99284

== ENCOUNTER 2024-04-07 07:48 | Oncology outpatient (recurring) (ONCR) | payer MEDICARE, OTHER, SELFPAY ==
--- NOTE | 2024-04-07 09:37 | N.ONRAD NP_ITS ---
Radiation Oncology New Patient Visit Patient: Marsha Juárez MR#: [id number] : 1955 Age: 69 Sex: Female Dictated by: Dr. 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 Chief Complaint / History of Present Illness: Patient initially was found to have an abnormality on a screening mammogram in January. She subsequently had a biopsy on that surgery on February 26. The lesion was found to be a stage T1b N0 M0. It was grade 1 ER/IL positive H ER 2 negative making her final stage A 1A. This was located in the lower inner quadrant and final pathology showed 7 mm in size with negative margins and mucinous changes. She is here today to discuss the radiation portion of her treatment. She has previously met with a medical oncologist in [place] Current Medications: Allergies: oxycodone Allergy (Verified 07/11/23 21:16) Rohit Medical History: No history of collagen vascular disease. No previous radiation therapy. Recurrent UTI, depression, anxiety, GERD, hyperlipidemia, hypertension, hypothyroidism Surgical History: Hernia repair, EDDIE/BSO, C-sections Family History: Her mother and maternal aunt both had breast cancer, mother , at 69 Heart disease Father , at age 72 Heart disease Social History: Smoking and tobacco/nicotine status: former use of tobacco/nicotine Alcohol intake: never Substance/Drug Use: never Marital status: Current occupational status: retired Current Complaints / Review of Systems: . Vital Signs: Performed on 04/06/2024 1:04 PM BMI - 22.521 kg/m2, Height - 64 in, Weight - 131.2 lbs, Temperature - 97.3 f, Pulse - 67 /min, Respiration - 17 /min, O2 Sat - 100 %, Pain - 0, Fatigue - 0 and BP - 153/ 88 mm(hg)(high/). Physical Exam: General: Patient is in no apparent distress. HEENT: Normocephalic atraumatic. Pupils are equal, sclera clear, extraocular muscles intact Pulmonary: Respiratory rate is regular nonlabored Cardiovascular: Regular rate and rhythm Breast examination: The left breast has a small incision in the lower inner quadrant. There is no erythema or drainage noted. Axillary incision is also nicely healed. No masses were noted. Extremities: No lymphedema was noted in the upper extremities Abdomen: No hepatomegaly was noted, abdomen is flat with minimal adipose tissue Neurological: Alert and orient x 3. 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 We talked about the staging. We discussed the radiation and reviewed the simulation process. We discussed the daily treatment regiment. I reviewed with her the history of breast cancer and the radiation treatments. We talked about how we have a multitude of different regimens we can use ranging from 6 weeks down to weekly treatments. After discussing the different regiment she actually has elected to proceed with the once a week treatment for 5 weeks. We talked about how the long-term data shows good control and is equivalent to the other regimens. Especially with her low-grade and small size she should have no further issues. At this point she will return to undergo simulation and begin her treatment shortly thereafter Signed by: 04/07/2024 9:36:05 AM <<Signature on File>> Time spent with patient: 35 CPT Code: CPT Code:
== END 2024-04-11 23:59 | disposition home or self-care (01) ==
PROVIDERS: PCP Family Medicine; Visit Provider Radiology Radiation Oncology
DX: Z51.0 Encounter for antineoplastic radiation therapy (principal); C50.812 Malignant neoplasm of overlapping sites of left female breast; Z17.0 Estrogen receptor positive status [ER+]; Z87.891 Personal history of nicotine dependence
CPT/HCPCS: 77290; 77295; 77300; 77334; 99205

== ENCOUNTER 2024-05-12 08:35 | Oncology outpatient (recurring) (ONCR) | payer MEDICARE, OTHER, SELFPAY ==
--- NOTE | 2024-04-14 08:37 | ONCRAD TMN_ITS ---
Radiation Oncology Weekly Treatment Management Patient: Franck Jarrell MR#: [id number] : 1955> Attending Physician: Dr. Miley Suarez Date of Service: 04/14/2024 Fractions: 1 out of 5 Referring Physician(s) : Diagnosis: C50.312 - Malignant neoplasm of lower-inner quadrant of left female breast, Diagnosed 04/06/2024 (Active) Radiotherapy to date: Course: Left breast, Treatment Site: L breast, Ref. ID: Breast_L, Energy: 15X/6X, Dose/Fx (cGy): 570, #Fx: / 5, Dose Correction (cGy): 0, Total Dose Delivered (cGy): 570, Start Date: 04/14/2024, Elapsed Days: 0 Reason for visit: The patient is being seen today as part of their regularly scheduled weekly on treatment visits to assess for acute toxicities from radiotherapy. Review of Systems: Patient had no additional questions or concerns. Vital Signs: Performed on 04/14/2024 8:10 AM BMI - 23.07 kg/m2 (high), Height - 64 in, Weight - 134.4 lbs, Temperature - 97.2 f, Pulse - 64 /min, Respiration - 18 /min, O2 Sat - 97 %, Pain - 0, Fatigue - 0 and BP - 166/ 94 mm(hg)(high). Physical Exam: No changes on exam Imaging: Radiation therapy imaging related to accurate target localization (i.e. KV, MV and CBCT) was reviewed. Appropriate changes, if any, were made to ensure treatment accuracy. Plan: Will continue with her once a week treatment. I have asked her to call if any problems and intervening between her weekly treatments Signed by: Dr. Miley Suarez 04/14/2024 8:34:42 AM
--- NOTE | 2024-04-21 09:23 | ONCRAD TMN_ITS ---
Radiation Oncology Weekly Treatment Management Patient: Marsha Juárez MR#: [id number] : 1955 Attending Physician: Dr. Miley Suarez Date of Service: 04/21/2024 Fractions: 2 out of 5 Referring Physician(s) : Diagnosis: C50.312 - Malignant neoplasm of lower-inner quadrant of left female breast, Diagnosed 04/06/2024 (Active) Radiotherapy to date: Course: Left breast, Treatment Site: L breast, Ref. ID: Breast_L, Energy: 15X/6X, Dose/Fx (cGy): 570, #Fx: 2 / 5, Dose Correction (cGy): 0, Total Dose Delivered (cGy): 1,140, Start Date: 04/14/2024, Elapsed Days: 7 Reason for visit: The patient is being seen today as part of their regularly scheduled weekly on treatment visits to assess for acute toxicities from radiotherapy. Review of Systems: Patient says that after the first treatment her breast became very erythematous but this resolved. She also began to develop some sharp shooting pain through the surgical site and tenderness under her arm. Vital Signs: Performed on 04/21/2024 8:44 AM BMI - 22.83 kg/m2, Height - 64 in, Weight - 133 lbs, Temperature - 97.6 f, Pulse - 65 /min, Respiration - 16 /min, O2 Sat - 99 %, Pain - 0, Fatigue - 0 and BP - 162/ 82 mm(hg)(high/). Physical Exam: Her skin is just mildly hyperpigmented. Imaging: Radiation therapy imaging related to accurate target localization (i.e. KV, MV and CBCT) was reviewed. Appropriate changes, if any, were made to ensure treatment accuracy. Plan: I reassured that the sharp shooting pain is normal. Many women have that even just after the surgery. We talked about how she flushed after the treatments which is also fairly common. At this point I have asked her to continue to use her cream and will continue with her treatments as planned Signed by: Dr. Miley Suarez 04/21/2024 9:22:23 AM
--- NOTE | 2024-04-28 12:51 | ONCRAD TMN_ITS ---
Radiation Oncology Weekly Treatment Management Patient: Marsha Juárez MR#: [id number] : 1955 Attending Physician: Dr. Miley Suarez Date of Service: 04/28/2024 Fractions: 3 out of 5 Referring Physician(s) : Diagnosis: C50.312 - Malignant neoplasm of lower-inner quadrant of left female breast, Diagnosed 04/06/2024 (Active) Radiotherapy to date: Course: Left breast, Treatment Site: L breast, Ref. ID: Breast_L, Energy: 15X/6X, Dose/Fx (cGy): 570, #Fx: 3 / 5, Dose Correction (cGy): 0, Total Dose Delivered (cGy): 1,710, Start Date: 04/14/2024, Elapsed Days: 14 Reason for visit: The patient is being seen today as part of their regularly scheduled weekly on treatment visits to assess for acute toxicities from radiotherapy. Review of Systems: Patient has noticed some tenderness in the axillary area on occasion. She also notes that the breast seems a more swollen Vital Signs: Performed on 04/28/2024 11:47 AM BMI - 23.07 kg/m2 (high), Height - 64 in, Weight - 134.4 lbs, Temperature - 97.1 f, Pulse - 62 /min, Respiration - 17 /min, O2 Sat - 98 %, Pain - 0, Fatigue - 0 and BP - 148/ 87 mm(hg)(high/). Physical Exam: On exam her skin is mildly hyperpigmented Imaging: Radiation therapy imaging related to accurate target localization (i.e. KV, MV and CBCT) was reviewed. Appropriate changes, if any, were made to ensure treatment accuracy. Plan: I reviewed some massage techniques she can use for her breast once we finished. I reassured her about the axillary changes. Will continue with her treatments as planned Signed by: Dr. Miley Suarez 04/28/2024 12:49:28 PM
--- NOTE | 2024-05-05 09:07 | ONCRAD TMN_ITS ---
Radiation Oncology Weekly Treatment Management Patient: Marsha Juárez MR#: [id number] : 1955 Attending Physician: Dr. Miley Suarez Date of Service: 05/05/2024 Fractions: 4 out of 5 Referring Physician(s) : Diagnosis: C50.312 - Malignant neoplasm of lower-inner quadrant of left female breast, Diagnosed 04/06/2024 (Active) Radiotherapy to date: Course: Left breast, Treatment Site: L breast, Ref. ID: Breast_L, Energy: 15X/6X, Dose/Fx (cGy): 570, #Fx: 4 / 5, Dose Correction (cGy): 0, Total Dose Delivered (cGy): 2,280, Start Date: 04/14/2024, Elapsed Days: 21 Reason for visit: The patient is being seen today as part of their regularly scheduled weekly on treatment visits to assess for acute toxicities from radiotherapy. Review of Systems: Patient actually had the flu last week. She has no complaints today. Vital Signs: Performed on 05/05/2024 8:39 AM BMI - 23.173 kg/m2 (high), Height - 64 in, Weight - 135 lbs, Temperature - 97.4 f, Pulse - 60 /min, Respiration - 16 /min, O2 Sat - 98 %, Pain - 0, Fatigue - 0 and BP - 137/ 84 mm(hg). Physical Exam: On exam her skin looks very normal. She has had minimal hyperpigmentation Imaging: Radiation therapy imaging related to accurate target localization (i.e. KV, MV and CBCT) was reviewed. Appropriate changes, if any, were made to ensure treatment accuracy. Plan: Will continue with her treatments as planned. She has 1 treatment remaining next week Signed by: Dr. Miley Suarez 05/05/2024 9:06:21 AM
--- NOTE | 2024-05-12 09:23 | N.ONRD TS_ITS ---
Radiation Oncology Treatment Summary/ Weekly Management Note Patient: Franck>Marsha> MR#: [id number] : 1955> Age: 69> Sex: Female Dictated by: Dr. Miley Suarez Date of Service: 05/12/2024 Referring Physician(s) : Diagnosis: C50.312 - Malignant neoplasm of lower-inner quadrant of left female breast, Diagnosed 04/06/2024 (Active) Radiotherapy to Date: Course: Left breast, Treatment Site: L breast, Ref. ID: Breast_L, Energy: 15X/6X, Dose/Fx (cGy): 570, #Fx: 5 / 5, Dose Correction (cGy): 0, Total Dose Delivered (cGy): 2,850, Start Date: 04/14/2024, End Date: 05/12/2024, Elapsed Days: 28 Clinical Summary: The patient tolerated RT well. Her skin at the end of treatment is mildly hyperpigmented. She has no moist or dry desquamation. Plan: End of treatment today. Continue on the above medication until the skin reaction resolves. Follow up in one month. Signed by: Dr. Miley Suarez>05/12/2024 9:21:43 AM <<Signature on File>>
== END 2024-05-12 23:59 | disposition home or self-care (01) ==
PROVIDERS: PCP Family Medicine; Visit Provider Radiology Radiation Oncology
DX: Z51.0 Encounter for antineoplastic radiation therapy (principal); C50.312 Malignant neoplasm of lower-inner quadrant of left female breast
CPT/HCPCS: 77387; 77412; 99024

== ENCOUNTER 2024-06-08 13:05 | Oncology outpatient (recurring) (ONCR) | payer MEDICARE, OTHER, SELFPAY ==
--- NOTE | 2024-06-09 08:59 | ONCRAD EPV_ITS ---
Radiation Oncology Established Patient Visit Patient: Marsha Juárez [id number] : 1955 Age: 69 Sex: Female Dictated by: Dr. Miley Suarez Date of Service: 06/08/2024 Referring Physician(s) : Diagnosis: C50.312 - Malignant neoplasm of lower-inner quadrant of left female breast, Diagnosed 04/06/2024 (Active) Radiotherapy to Date: Course: Left breast, Treatment Site: L breast, Ref. ID: Breast_L, Energy: 15X/6X, Dose/Fx (cGy): 570, #Fx: 5 / 5, Dose Correction (cGy): 0, Total Dose Delivered (cGy): 2,850, Start Date: 04/14/2024, End Date: 05/12/2024, Elapsed Days: 28 Current History: Patient returns today for her 1 month follow-up. She is in good spirits. She has a good appetite. She has noticed no new aches or pains. Her skin is healed nicely. She says it still somewhat tanned. Current Medications: Allergies: Current Complaints / Review of Systems: . Vital Signs: Performed on 06/08/2024 1:37 PM BMI - 23.447 kg/m2 (high), Height - 64 in, Weight - 136.6 lbs, Temperature - 97.4 f, Pulse - 74 /min, Respiration - 17 /min, O2 Sat - 97 %, Pain - 0, Fatigue - 0 and BP - 150/ 88 mm(hg)(high/). Physical Exam: General: Alert and oriented x 3. No acute distress. HEENT: Normocephalic atraumatic. Pupils are equal, sclera clear, extraocular muscles intact. LUNGS: Respiratory rate is regular nonlabored. HEART: Regular rate and rhythm Breast: Skin is just mildly dry and hyperpigmented. Her skin is completely healed. EXTREMITIES: No lymphedema is noted in the upper extremities. NEUROLOGIC: Alert and orient x 3. Gait and speech within normal limits Performance Status: 100 Lab: None pending. Pathology: Primary, c50.312 - malignant neoplasm of lower-inner quadrant of left female breast, Diagnosed 04/06/2024 (active) . Imaging: See HPI Impression: Left-sided breast cancer Plan: At this point patient is healed nicely from her treatments. She has her mammogram scheduled with her surgeon who she will see on a regular basis as well as her medical oncologist both of whom are in [place]. Will see her back on a as needed basis. I encouraged her to call if any problems should arise. Signed by: 06/09/2024 8:58:20 AM <<Signature on File>> Time spent with patient:20 CPT Code: CPT Code:
== END 2024-06-12 23:59 | disposition home or self-care (01) ==
LOC: ONCMED 13:06
PROVIDERS: PCP Family Medicine; Visit Provider Radiology Radiation Oncology
DX: Z08 Encounter for follow-up examination after completed treatment for malignant neoplasm (principal); C50.312 Malignant neoplasm of lower-inner quadrant of left female breast; Z92.3 Personal history of irradiation
CPT/HCPCS: 77336; 99024